=== PATIENT | female | born 1975 | race Caucasian/White ===

== ENCOUNTER 2022-06-07 08:31 | Emergency (ER) | payer MEDICAID, OTHER ==
[~2022-06-07] VITALS: Ht 162.5 cm; Wt 77.1 kg
[2022-06-07 08:51] LABS: BILIRUBIN,URINE NEGATIVE (NEGATIVE); CLARITY,URINE CLOUDY; COLOR,URINE YELLOW; GLUCOSE, URINE (UA) NEGATIVE (NEGATIVE); KETONES,URINE NEGATIVE (NEGATIVE); LEUKOCYTE ESTERASE ,URINE 2+ (NEGATIVE); NITRITE,URINE POSITIVE (NEGATIVE); PROTEIN,URINE 2+ (NEGATIVE)
[2022-06-07 09:07] LABS: AMORPHOUS SEDIMENT,UR FEW AMOR URATES /LPF; BACTERIA,URINE MODERATE /HPF; RBC,URINE 25-50 /HPF; WBC,URINE TNTC /HPF
[2022-06-07] MEDS ORDERED: PHENAZOPYRIDINE 100 MG (PYRIDIUM) TABLET PO ONE (10:00)
[2022-06-07] MEDS ORDERED: HYOSCYAMINE 0.125 MG (LEVSIN) TAB PO ONE (10:00)
[2022-06-07] MEDS ORDERED: CEPH500T PO (10:41)
[2022-06-07] MEDS ORDERED: PHEN-640 PO (10:41)
[2022-06-07] MEDS ORDERED: HYOS0.1283 SL (10:41)
--- NOTE | 2022-06-07 10:41 | ED GU-Female ---
General Chief Complaint: - Reproductive Stated Complaint: UNABLE TO URINATE Nursing Triage Note: PT AMB TO RM 8 WITH COMPLAINT OF URINARY URGENCY AND FREQUENCY. STATES STARTED 3 DAYS AGO. Source: patient Exam Limitations: no limitations History of Present Illness Date Seen by Provider: Jun 07, 2022 Time Seen by Provider: 08:33 Initial Comments This 46-year-old woman presents to the emergency room with complaints of very painful urination and pelvic discomfort with frequency and small voids. Symptoms have been present for 3 days. She does not feel like she is emptying her bladder completely. She denies fever. She has not noticed any gross hematuria. Pain is central in the suprapubic region. Seth Jones in [place] is her primary care provider. Allergies and Home Medications Allergies Coded Allergies: No Known Drug Allergies (Unverified , 06/07/22) Patient Home Medication List Home Medication List Reviewed: Yes Cephalexin (Cephalexin) 500 Mg Tablet, 500 MG PO TID Prescribed by: MICHELLE JOE on 06/07/22 1041 Hyoscyamine Sulfate (Levsin-Sl) 0.125 Mg Tab.subl, 0.125 MG SL Q4H PRN for SPASMS Prescribed by: MICHELLE JOE on 06/07/22 1041 Phenazopyridine HCl (Pyridium) 200 Mg Tablet, 1 TAB PO TID PRN for PAIN-MODERATE (5-7) Prescribed by: MICHELLE JOE on 06/07/22 1041 Review of Systems Review of Systems Constitutional: no symptoms reported EENTM: no symptoms reported Respiratory: no symptoms reported Cardiovascular: no symptoms reported Gastrointestinal: no symptoms reported Genitourinary: see HPI : No Musculoskeletal: no symptoms reported Skin: no symptoms reported Psychiatric/Neurological: No Symptoms Reported Endocrine: No Symptoms Reported Hematologic/Lymphatic: No Symptoms Reported Past Vmcehsu-Nxbihi-Rzedtq Hx Patient Social History Tobacco Use?: Yes Tobacco type used: Cigarettes Smoking Status: Current Everyday Smoker Use of E-Cig and/or Vaping dev: No Substance use?: Yes Substance type: Methamphetamine Alcohol Use?: Yes Alcohol Frequency: Daily Pt feels they are or have been: No Past Medical History Surgeries: Yes Section (X3), Orthopedic (Back) Respiratory: No Cardiac: No Neurological: No : No Reproductive Disorders: No Genitourinary: No Gastrointestinal: No Musculoskeletal: No Endocrine: No HEENT: No Cancer: No Psychosocial: Yes Anxiety, Depression Physical Exam Vital Signs Vital Signs - First Documented 06/07/22 08:37 Temp 36.8 Pulse 87 Resp 16 B/P (MAP) 157/99 (118) Pulse Ox 99 O2 Delivery Room Air Capillary Refill : Less Than 3 Seconds Height, Weight, BMI Height: '" Weight: lbs. oz. kg; 29.00 BMI Method: General Appearance: WD/WN, no apparent distress, thin HEENT: PERRL/EOMI, normal ENT inspection Neck: normal inspection Cardiovascular: regular rate, rhythm, no murmur Respiratory: lungs clear, normal breath sounds, no respiratory distress Gastrointestinal: normal bowel sounds, soft; No distended; tenderness (Suprapubic) Back: no CVA tenderness Extremities: non-tender, no pedal edema Neurologic/Psychiatric: no motor/sensory deficits, alert, normal mood/affect, oriented x 3 Skin: normal color, warm/dry Progress/Results/Core Measures Suspected Sepsis SIRS Temperature: Pulse: 87 Respiratory Rate: 16 Blood Pressure 157 /99 Mean: 118 Results/Orders Lab Results Laboratory Tests Test 06/07/22 08:37 Range/Units Urine Color YELLOW Urine Clarity CLOUDY Urine pH 6.0 5-9 Urine Specific [place] >=1.030 1.016-1.022 Urine Protein 2+ H NEGATIVE Urine Glucose (UA) NEGATIVE NEGATIVE Urine Ketones NEGATIVE NEGATIVE Urine Nitrite POSITIVE H NEGATIVE Urine Bilirubin NEGATIVE NEGATIVE Urine Urobilinogen 0.2 < = 1.0 MG/DL Urine Leukocyte Esterase 2+ H NEGATIVE Urine RBC (Auto) 2+ H NEGATIVE Urine RBC 25-50 H /HPF Urine WBC TNTC H /HPF Urine Squamous Epithelial Cells 2-5 /HPF Urine Crystals PRESENT H /LPF Urine Amorphous Sediment FEW YOSELIN URATES H /LPF Urine Bacteria MODERATE H /HPF Urine Casts NONE /LPF Urine Mucus SMALL H /LPF Urine Culture Indicated YES Urine Test NEGATIVE NEGATIVE My Orders Orders - MICHELLE ALCALA MD Ua Culture If Indicated (06/07/22 08:33) Urine Culture (06/07/22 08:37) Hyoscyamine Sl Tablet (Levsin Sl Tablet) (06/07/22 10:00) Phenazopyridine Tablet (Pyridium Tablet) (06/07/22 10:00) Hcg,Qualitative Urine (06/07/22 09:58) Medications Given in ED Current Medications Medications Dose Ordered Sig/Felipe Route Start Time Stop Time Status Last Admin Dose Admin Hyoscyamine Sulfate 0.25 mg ONCE ONCE PO 06/07/22 10:00 06/07/22 10:01 DC 06/07/22 10:29 0.25 MG Phenazopyridine HCl 200 mg ONCE ONCE PO 06/07/22 10:00 06/07/22 10:01 DC 06/07/22 10:29 200 MG Vital Signs/I&O 06/07/22 06/07/22 08:37 10:44 Temp 36.8 36.8 Pulse 87 87 Resp 16 16 B/P (MAP) 157/99 (118) 145/89 Pulse Ox 99 99 O2 Delivery Room Air Room Air Capillary Refill : Less Than 3 Seconds Blood Pressure Mean: 118 Progress Note : Progress Note UTI noted on urinalysis. She was treated with Levsin and Pyridium. Antibiotics prescribed. Importance of follow-up for repeat urinalysis due to the hematuria and review of urine cultures was emphasized. See discharge instructions for further discussion. Bladder scan revealed no significant residual postvoid. Departure Impression Primary Impression: Urinary tract infection Qualified Codes: N39.0 - Urinary tract infection, site not specified; R31.9 - Hematuria, unspecified Additional Impression: Painful bladder spasm Disposition: 01 HOME, SELF-CARE Condition: Improved Departure-Patient Inst. Decision time for Depature: 10:37 Referrals: NO,LOCAL PHYSICIAN (PCP/Family) Primary Care Physician Patient Instructions: Urinary Tract Infection, Adult (DC) Add. Discharge Instructions: You have a urinary tract infection but no evidence of urinary retention. It appears you are emptying your bladder. Your pain is likely due in part to bladder spasms. Drink lots of clear liquids to stay well-hydrated and help flush out the urinary tract. You may use Levsin (hyoscyamine) as prescribed for bladder spasming. This medication is dissolved under the tongue. You may use Pyridium for bladder numbing. This medication may turn your urine a red or orange color. Please do not be alarmed by this. Complete your antibiotic as prescribed. Follow-up with your primary care provider on or Monday to review urine culture results. This is important to ensure you are taking the best antibiotic for the type of bladder infection you have. You also need to follow-up with your primary care provider in 2 or 3 weeks to have your urine checked again. There was a small amount of blood in your urine which is likely due to infection. However, we need to make sure the blood clears as there may be other causes of blood such as kidney stones, cancer, cystitis, etc. Return to the ER if you have worsening symptoms or develop new symptoms such as fever. All discharge instructions reviewed with patient and/or family. Voiced understanding. Scripts Hyoscyamine Sulfate (Levsin-Sl) 0.125 Mg Tab.subl 0.125 MG SL Q4H PRN for SPASMS, #10 TAB 0 Refills Prov: MICHELLE ALCALA MD 06/07/22 Phenazopyridine HCl (Pyridium) 200 Mg Tablet 1 TAB PO TID PRN for PAIN-MODERATE (5-7), #10 TAB Prov: MICHELLE ALCALA MD 06/07/22 Cephalexin (Cephalexin) 500 Mg Tablet 500 MG PO TID, #21 TAB Prov: MICHELLE ALCALA MD 06/07/22 MICHELLE ALCALA MD Jun 07, 2022 10:41
[2022-06-07 10:44] VITALS: BP 145/89
== END 2022-06-07 10:44 | disposition home or self-care (01) ==
LOC: EDUNIT# 08:31 → ER 08:32
DX: N39.0 Urinary tract infection, site not specified (principal); N32.89 Other specified disorders of bladder; F17.210 Nicotine dependence, cigarettes, uncomplicated; Z28.310 Unvaccinated for COVID-19
CPT/HCPCS: 81000; 84703; 87077; 87088; 99283

== ENCOUNTER 2022-10-04 07:37 | Emergency (ER) | payer MEDICAID ==
[~2022-10-04] VITALS: Ht 162.5 cm; Wt 72.6 kg
[~2022-10-04 07:37] MED LIST: CEPH500T PO; HYOS0.1283 SL; PHEN-640 PO
--- NOTE | 2022-10-04 08:19 | ED GU-Female ---
General Chief Complaint: Abdominal/GI Problems Stated Complaint: PELVIC PAIN Nursing Triage Note: PT AMB TO RM 10 WITH COMPLAINT OF INTERMITTENT PELVIC PAIN THAT HAS BEEN ON GOING FOR YEARS. STATES THIS MORNING IT HAS WORSENED. LMP 2 WEEKS AGO. Source: patient, family (Significant other) Exam Limitations: no limitations History of Present Illness Date Seen by Provider: Oct 04, 2022 Time Seen by Provider: 07:52 Initial Comments Here with report of low abdominal pain that has been intermittent over the last several years and worse with sexual activity. States that the pain was worse this morning and notes watery discharge. Significant other reports that she has had watery discharge and vaginal odor. He reports that she has been complaining of lower abdominal pain and agrees that she has been using ibuprofen and or naproxen as needed for pain. Patient admits to history of methamphetamine use but states that she is not using currently has been several days. She denies nausea, vomiting, fever, chills or weakness. She does report history of fibroids. Timing/Duration: intermittent, other (A few years but worse over the last few days including this morning) Severity/Quality: moderate, aching Location: suprapubic Radiation: back Activities at Onset: none Sexual [place] History: less than 2 months ago, single partner Modifying Factors: Improves With Other (Sexual activity) Associated Symptoms: abdominal pain, dysuria; No fever/chills; lower back pain, urinary frequency Allergies and Home Medications Allergies Coded Allergies: No Known Drug Allergies (Unverified , 06/07/22) Patient Home Medication List Home Medication List Reviewed: Yes Cephalexin (Cephalexin) 500 Mg Tablet, 500 MG PO TID Prescribed by: MICHELLE JOE on 06/07/22 1041 Hyoscyamine Sulfate (Levsin-Sl) 0.125 Mg Tab.subl, 0.125 MG SL Q4H PRN for SPASMS Prescribed by: MICHELLE JOE on 06/07/22 1041 Phenazopyridine HCl (Pyridium) 200 Mg Tablet, 1 TAB PO TID PRN for PAIN-MODERATE (5-7) Prescribed by: MICHELLE JOE on 06/07/22 1041 Review of Systems Review of Systems Constitutional: see HPI; No chills, No fever Respiratory: No cough, No short of breath Gastrointestinal: see HPI Genitourinary: see HPI LMP: Sep 20, 2022 Musculoskeletal: back pain; No muscle pain Psychiatric/Neurological: Denies Headache, Denies Weakness Past Hfsilsg-Rsrgdp-Xjpdmy Hx Patient Social History Tobacco Use?: Yes Tobacco type used: Cigarettes Smoking Status: Current Everyday Smoker Use of E-Cig and/or Vaping dev: No Substance use?: No Substance type: Methamphetamine Substance frequency: Once in a while Alcohol Use?: Yes Alcohol Frequency: Couple times a week Pt feels they are or have been: No Past Medical History Surgeries: Yes Section, Orthopedic Respiratory: No Cardiac: No Neurological: No Reproductive Disorders: No Genitourinary: No Gastrointestinal: No Musculoskeletal: No Endocrine: No HEENT: No Cancer: No Psychosocial: Yes Anxiety, Depression Family Medical History Reviewed Nursing Family Hx No Pertinent Family Hx Physical Exam Vital Signs Vital Signs - First Documented 10/04/22 07:42 Pulse 103 Resp 20 B/P (MAP) 139/86 (103) Pulse Ox 100 O2 Delivery Room Air Capillary Refill : Less Than 3 Seconds Height, Weight, BMI Height: '" Weight: lbs. oz. kg; 27.00 BMI Method: General Appearance: WD/WN, no apparent distress Cardiovascular: regular rate, rhythm, no murmur Respiratory: lungs clear, normal breath sounds Gastrointestinal: soft, tenderness (Suprapubic and lateral bilateral with m oderate tenderness although no palpable mass) Back: normal inspection, no CVA tenderness, no vertebral tenderness Extremities: non-tender, normal inspection Neurologic/Psychiatric: alert, oriented x 3 Skin: normal color, warm/dry Progress/Results/Core Measures Suspected Sepsis SIRS Temperature: Pulse: 103 Respiratory Rate: 20 Laboratory Tests 10/04/22 09:48: White Blood Count 10.1 Blood Pressure 139 /86 Mean: 103 Laboratory Tests 10/04/22 09:48: Creatinine 0.82, Platelet Count 593H, Total Bilirubin 0.2 Results/Orders Lab Results Laboratory Tests Test 10/04/22 08:40 10/04/22 09:48 Range/Units Urine Color YELLOW Urine Clarity CLEAR Urine pH 6.0 5-9 Urine Specific [place] >=1.030 1.016-1.022 Urine Protein NEGATIVE NEGATIVE Urine Glucose (UA) NEGATIVE NEGATIVE Urine Ketones NEGATIVE NEGATIVE Urine Nitrite NEGATIVE NEGATIVE Urine Bilirubin NEGATIVE NEGATIVE Urine Urobilinogen 0.2 < = 1.0 MG/DL Urine Leukocyte Esterase 1+ H NEGATIVE Urine RBC (Auto) 3+ H NEGATIVE Urine RBC 2-5 H /HPF Urine WBC 2-5 /HPF Urine Squamous Epithelial Cells 2-5 /HPF Urine Crystals PRESENT H /LPF Urine Amorphous Sediment MOD YOSELIN URATES H /LPF Urine Bacteria FEW H /HPF Urine Casts NONE /LPF Urine Mucus NEGATIVE /LPF Urine Culture Indicated NO White Blood Count 10.1 4.3-11.0 10^3/uL Red Blood Count 3.90 3.80-5.11 10^6/uL Hemoglobin 8.9 L 11.5-16.0 g/dL Hematocrit 30 L 35-52 % Mean Corpuscular Volume 78 L 80-99 fL Mean Corpuscular Hemoglobin 23 L 25-34 pg Mean Corpuscular Hemoglobin Concent 29 L 32-36 g/dL Red Cell Distribution Width 15.9 H 10.0-14.5 % Platelet Count 593 H 130-400 10^3/uL Mean Platelet Volume 10.0 9.0-12.2 fL Immature Granulocyte % (Auto) 0 % Neutrophils (%) (Auto) 64 42-75 % Lymphocytes (%) (Auto) 23 12-44 % Monocytes (%) (Auto) 10 0-12 % Eosinophils (%) (Auto) 2 0-10 % Basophils (%) (Auto) 1 0-10 % Neutrophils # (Auto) 6.4 1.8-7.8 10^3/uL Lymphocytes # (Auto) 2.3 1.0-4.0 10^3/uL Monocytes # (Auto) 1.0 0.0-1.0 10^3/uL Eosinophils # (Auto) 0.2 0.0-0.3 10^3/uL Basophils # (Auto) 0.1 0.0-0.1 10^3/uL Immature Granulocyte # (Auto) 0.0 0.0-0.1 10^3/uL Sodium Level 131 L 135-145 MMOL/L Potassium Level 4.1 3.6-5.0 MMOL/L Chloride Level 101 98-107 MMOL/L Carbon Dioxide Level 22 21-32 MMOL/L Anion Gap 8 5-14 MMOL/L Blood Urea Nitrogen 14 7-18 MG/DL Creatinine 0.82 0.60-1.30 MG/DL Estimat Glomerular Filtration Rate 90 BUN/Creatinine Ratio 17 Glucose Level 95 70-105 MG/DL Calcium Level 9.1 8.5-10.1 MG/DL Corrected Calcium 9.3 8.5-10.1 MG/DL Total Bilirubin 0.2 0.1-1.0 MG/DL Aspartate Amino Transf (AST/SGOT) 31 5-34 U/L Alanine Aminotransferase (ALT/SGPT) 27 0-55 U/L Alkaline Phosphatase 76 40-136 U/L C-Reactive Protein High Sensitivity 0.64 H 0.00-0.50 MG/DL Total Protein 7.3 6.4-8.2 GM/DL Albumin 3.7 3.2-4.5 GM/DL Micro Results Microbiology 10/04/22 Wet Prep - Final, Complete My Orders Orders - JAE LAGOS MD Ua Culture If Indicated (10/04/22 08:04) Urine Bedside (10/04/22 08:04) Wet Prep (10/04/22 08:04) Us Non Ob Pelvis Comp/Transvag (10/04/22 08:04) Ed Iv/Invasive Line Start (10/04/22 09:15) Cbc With Automated Diff (10/04/22 09:15) Comprehensive Metabolic Panel (10/04/22 09:15) Hs C Reactive Protein (10/04/22 09:15) Ct Abdomen/Pelvis W (10/04/22 09:15) Ns Iv 1000 Ml (Sodium Chloride 0.9%) (10/04/22 09:15) Iohexol Injection (Omnipaque 350 Mg/Ml 1 (10/04/22 09:30) Received Contrast (Hold Metformin- Contr (10/04/22 09:30) Ns (Ivpb) (Sodium Chloride 0.9% Ivpb Bag (10/04/22 09:30) Di Iv Start (Assessment) .IV start (10/04/22 09:38) Medications Given in ED Current Medications Medications Dose Ordered Sig/Felipe Route Start Time Stop Time Status Last Admin Dose Admin Iohexol 80 ml ONCE ONCE IV 10/04/22 09:30 10/04/22 09:35 DC 10/04/22 09:41 80 ML Sodium Chloride 100 ml ONCE ONCE IV 10/04/22 09:30 10/04/22 09:35 DC 10/04/22 09:41 80 ML Sodium Chloride 1,000 ml @ 0 mls/hr Q0M ONCE IV 1/24/23 09:15 10/04/22 09:18 DC 10/04/22 09:50 0 MLS/HR Vital Signs/I&O 10/04/22 07:42 Pulse 103 Resp 20 B/P (MAP) 139/86 (103) Pulse Ox 100 O2 Delivery Room Air Capillary Refill : Less Than 3 Seconds Blood Pressure Mean: 103 Progress Note : Progress Note Seen and evaluated. I did discuss several options for therapy. Ultimately she did not want to do IV and she declined pain medicine but is okay with UA, UCG and wet prep. She also agreed to pelvic ultrasound due to history of fibroids. I did discuss that this is a limited evaluation given her constraints and she was okay with that. She does have appointment with her doctor on 14 October for annual exam. We also did discuss methamphetamine use and avoidance and community programs that can help which she uses appreciative of the conversation. Differential includes UTI, bacterial vaginosis, uterine fibroids, other pelvic pathology. 0915: Patient does have concerning findings on ultrasound of large uterine fibroids but also the cervix is obscured. I did discuss all of this with the machine maintenance technician. She was very concerned about the lower uterine segment because she cannot see it. I did discuss this with the patient. Given that we have partially obscured findings, CT abdomen and pelvis is appropriate. This was discussed with the patient. We will also check basic labs. She does have findings of bacterial vaginosis by wet prep. UA is nonconcerning for UTI but does have a little blood. We will see what CT scan shows. Monitor patient. 1040: Hemoglobin 8.9 with normal white count and otherwise normal CBC. CMP nonconcerning overall although sodium is slightly low. CRP is negative. I did review CT results as noted below. Patient does have follow-up with her primary care doctor and I will encourage her to find follow-up with record systems analyst as she may need further evaluation regarding that. She can get referral through her doctor as well. We will initiate treatment for bacterial vaginosis. 1057: I did have more in-depth conversation with the patient. She actually has appointment with record systems analyst on October 14 and another primary care provider on October 13. She will bring copy of her records to the other record systems analyst to look at. I did discuss the importance of follow-up due to concerns about these fibroid growths. Discharged home with return precautions. Patient and significant other verbalized understanding instructions and agreement with plan. Patient will start metronidazole therapy from pharmacy across the street. I did also discuss anemia concerns. Patient admits to heavy menstrual periods. She will discuss this with her record systems analyst as well. Diagnostic Imaging Diagonstic Imaging: Ultrasound Plain Films/CT/US/NM/MRI: pelvis Comments [facility] [place], [place] NAME: [facility] REC#: [id number] PT STATUS: REG ER : 1975 PHYSICIAN: JAE LAGOS MD ADMIT DATE: 10/04/22/ER Draft Date of Exam:10/04/22 US NON OB PELVIS COMP/TRANSVAG PROCEDURE: US Non-ob pelvis comp/trans. INDICATION: Pelvic pain, history of fibroids. TECHNIQUE: Multiple Real-time grayscale sonographic images were obtained of the pelvis transabdominally and endovaginally. CORRELATION STUDY: None. FINDINGS: UTERUS: 10.9 x 9.3 x 9.2 cm. Uterus is enlarged and lobulated. Suggested heterogeneous masses, largest at approximately 7.2 x 6.1 x 5.3 cm, suspect for fibroids. The cervix is not able to be well delineated on this examination, obscured by shadowing. ENDOMETRIUM: Difficult to visualize. Endometrial thickness is approximately 0.8 cm, within normal limits for a premenopausal patient. RIGHT OVARY: 3.6 x 1.6 x 4.6 cm. LEFT OVARY: Not able to be visualized. Right ovary is grossly unremarkable but limited in assessment. Blood flow is demonstrated to the right ovary. No significant free pelvic fluid. IMPRESSION: 1. Significantly compromised and limited pelvic ultrasound examination. 2. Probable enlarged fibroid uterus. 3. Endometrium is largely obscured by shadowing. Additionally, the cervix cannot be well delineated. Possibility of a lower uterine and/or cervical based mass is not excluded and somewhat questioned. Dictated on workstation # [id number] Dict: 10/04/22 1001 Trans: 10/04/22 1019 [id number] Interpreted by: JARON HOOD DO Electronically signed by: Diagonstic Imaging: CT Plain Films/CT/US/NM/MRI: abdomen, pelvis Comments [facility] [place] [place] NAME: [facility] REC#: [id number] PT STATUS: REG ER : 1975 PHYSICIAN: JAE LAGOS MD ADMIT DATE: 10/04/22/ER Draft Date of Exam:10/04/22 CT ABDOMEN/PELVIS W PROCEDURE: CT abdomen and pelvis with contrast. TECHNIQUE: Multiple contiguous axial images were obtained through the abdomen and pelvis after administration of intravenous contrast. Auto Exposure Controls were utilized during the CT exam to meet ALARA standards for radiation dose reduction. All CT scans use one or more of the following dose optimizing techniques: automated exposure control, MA and/or KvP adjustment based on patient size and exam type or iterative reconstruction. INDICATION: Low abdominal pain. Correlation is made with prior sonogram performed earlier the same day. FINDINGS: Lung bases demonstrate minimal dependent atelectasis and are otherwise clear. There are no findings of pneumonia or edema. There is no pleural or pericardial effusion. The liver demonstrates some minimal focal fatty infiltration along the falciform ligament. Liver is otherwise normal. Portal veins and hepatic veins are patent. The gallbladder is nondistended. There are no radiodense gallstones or findings of biliary dilatation. Pancreas appears normal. The spleen is normal in size. There is no adrenal mass. Kidneys enhance normally and appear nonobstructed. The stomach is nondistended. There is no abnormal small or large bowel dilation. There is moderate stool within the right colon. The appendix is well-visualized and is normal. There is abnormal enlargement demonstrated of the uterus. This measures up to approximately 9.8 x 7.8 x 8.3 cm. There is slight fluid along the inferior margins of what appears to likely be a large intrauterine mass most compatible with a fibroid. Some blood products within the endometrial canal are not excluded. Process also extends into the lower uterine segment that obscures the cervix. Intraluminal blood within the cervix is considered as there does appear to be some complex blood or debris within the vagina. The ovaries appear unremarkable by CT. There is no pelvic free fluid or pelvic hemoperitoneum. The bladder is nondistended. No pathologically enlarged abdominal or pelvic lymph nodes. Aorta is normal in caliber. There is no acute osseous abnormality. There are advanced degenerative endplate changes and facet arthropathy at the L4-L5 and L5-S1 levels. IMPRESSION: 1. Large apparent intrauterine mass most suggestive of a fibroid. There also does, however appear to be some surrounding low density fluid and there is enlargement and obscuration of the lower uterine segment and the cervix is well as what appears to be some complex debris or blood products within the vagina. 2. By CT imaging, the ovaries themselves are unremarkable. 3. No pelvic free fluid or hemoperitoneum. 4. No findings of bowel obstruction. Dictated on workstation # [id number] Dict: 10/04/22 0951 Trans: 10/04/22 1003 [id number] Interpreted by: LIDYA TORRES MD Electronically signed by: Departure Impression Primary Impression: Uterine fibroid Qualified Codes: D25.9 - Leiomyoma of uterus, unspecified Additional Impressions: Anemia Qualified Codes: D64.9 - Anemia, unspecified Pelvic pain Bacterial vaginosis Disposition: HOME, SELF-CARE Condition: Stable Departure-Patient Inst. Decision time for Depature: 10:59 Referrals: ARIS VARGAS (PCP/Family) Primary Care Physician Patient Instructions: Bacterial Vaginosis ED, Uterine Fibroids (DC), Pelvic Pain ED Add. Discharge Instructions: All discharge instructions reviewed with patient and/or family. Voiced understanding. It is very important that you keep appointment with the record systems analyst as felipe eduled especially with findings of large uterine fibroids. Patient. Get copy of your records and give this to your record systems analyst. Your hemoglobin was 8.9, which is low. You should consider multivitamin with iron such as any of the vitamins that you may get [id number]. Discussed this with your record systems analyst as well. You do have findings of bacterial vaginosis. Therapy was initiated. Continue until complete. You may take Tylenol/acetaminophen 1000 mg every 6-8 hours as needed for fever or pain. You may take ibuprofen 600 mg every 8 hours as needed for fever or pain if you are not taking naproxen. Do not take both at the same time as they both are same class. Return for worse pain, fever, vomiting, weakness, breathing problems or other concerns as needed. Scripts Metronidazole (Metronidazole) 500 Mg Tablet 500 MG PO BID, #14 TAB 0 Refills Prov: JAE LAGOS MD 10/04/22 JAE LAGOS MD Oct 04, 2022 08:19
[2022-10-04 08:48] LABS: BILIRUBIN,URINE NEGATIVE (NEGATIVE); CLARITY,URINE CLEAR; COLOR,URINE YELLOW; GLUCOSE, URINE (UA) NEGATIVE (NEGATIVE); KETONES,URINE NEGATIVE (NEGATIVE); LEUKOCYTE ESTERASE ,URINE 1+ (NEGATIVE); NITRITE,URINE NEGATIVE (NEGATIVE); PROTEIN,URINE NEGATIVE (NEGATIVE)
[2022-10-04 08:57] LABS: AMORPHOUS SEDIMENT,UR MOD AMOR URATES /LPF; BACTERIA,URINE FEW /HPF
[2022-10-04] MEDS ORDERED: NS IV 1000 ML 1,000 ML IV ONE (09:15)
[2022-10-04] MEDS ORDERED: IOHEXOL 350 MG/ML 100 ML (OMNIPAQUE 350) VIAL IV ONE (09:30)
[2022-10-04] MEDS ORDERED: HOLD METFORMIN - RECEIVED CONTRAST 20 ML VIAL IV SCH (09:30)
[2022-10-04] MEDS ORDERED: NS 100 ML (IVPB) BAG IV ONE (09:30)
[2022-10-04 09:56] LABS: BASOPHILS # (AUTO) 0.1 10^3/uL (0.0-0.1); BASOPHILS % (AUTO) 1 % (0-10); EOSINOPHILS # (AUTO) 0.2 10^3/uL (0.0-0.3); EOSINOPHILS % (AUTO) 2 % (0-10); HEMATOCRIT 30 % (35-52); HEMOGLOBIN 8.9 g/dL (11.5-16.0); LYMPHOCYTES # (AUTO) 2.3 10^3/uL (1.0-4.0); LYMPHOCYTES % (AUTO) 23 % (12-44); MEAN CORPUSCULAR HEMOGLOBIN 23 pg (25-34); MEAN CORPUSCULAR HGB CONC 29 g/dL (32-36); MEAN CORPUSCULAR VOLUME 78 fL (80-99); MONOCYTES % (AUTO) 10 % (0-12); NEUTROPHILS # (AUTO) 6.4 10^3/uL (1.8-7.8); NEUTROPHILS % (AUTO) 64 % (42-75); PLATELET COUNT 593 10^3/uL (130-400); WHITE BLOOD COUNT 10.1 10^3/uL (4.3-11.0)
--- NOTE | 2022-10-04 10:03 | Diagnostic Imaging Report ---
PROCEDURE: CT abdomen and pelvis with contrast. TECHNIQUE: Multiple contiguous axial images were obtained through the abdomen and pelvis after administration of intravenous contrast. Auto Exposure Controls were utilized during the CT exam to meet ALARA standards for radiation dose reduction. All CT scans use one or more of the following dose optimizing techniques: automated exposure control, MA and/or KvP adjustment based on patient size and exam type or iterative reconstruction. INDICATION: Low abdominal pain. Correlation is made with prior sonogram performed earlier the same day. FINDINGS: Lung bases demonstrate minimal dependent atelectasis and are otherwise clear. There are no findings of pneumonia or edema. There is no pleural or pericardial effusion. The liver demonstrates some minimal focal fatty infiltration along the falciform ligament. Liver is otherwise normal. Portal veins and hepatic veins are patent. The gallbladder is nondistended. There are no radiodense gallstones or findings of biliary dilatation. Pancreas appears normal. The spleen is normal in size. There is no adrenal mass. Kidneys enhance normally and appear nonobstructed. The stomach is nondistended. There is no abnormal small or large bowel dilation. There is moderate stool within the right colon. The appendix is well-visualized and is normal. There is abnormal enlargement demonstrated of the uterus. This measures up to approximately 9.8 x 7.8 x 8.3 cm. There is slight fluid along the inferior margins of what appears to likely be a large intrauterine mass most compatible with a fibroid. Some blood products within the endometrial canal are not excluded. Process also extends into the lower uterine segment that obscures the cervix. Intraluminal blood within the cervix is considered as there does appear to be some complex blood or debris within the vagina. The ovaries appear unremarkable by CT. There is no pelvic free fluid or pelvic hemoperitoneum. The bladder is nondistended. No pathologically enlarged abdominal or pelvic lymph nodes. Aorta is normal in caliber. There is no acute osseous abnormality. There are advanced degenerative endplate changes and facet arthropathy at the L4-L5 and L5-S1 levels. IMPRESSION: 1. Large apparent intrauterine mass most suggestive of a fibroid. There also does, however appear to be some surrounding low density fluid and there is enlargement and obscuration of the lower uterine segment and the cervix is well as what appears to be some complex debris or blood products within the vagina. 2. By CT imaging, the ovaries themselves are unremarkable. 3. No pelvic free fluid or hemoperitoneum. 4. No findings of bowel obstruction. Dictated by: Dictated on workstation # [id number]
[2022-10-04 10:08] LABS: ALBUMIN 3.7 GM/DL (3.2-4.5); POTASSIUM 4.1 MMOL/L (3.6-5.0)
[2022-10-04 10:09] LABS: CALCIUM 9.1 MG/DL (8.5-10.1)
[2022-10-04 10:11] LABS: TOTAL PROTEIN 7.3 GM/DL (6.4-8.2)
[2022-10-04 10:12] LABS: BILIRUBIN,TOTAL 0.2 MG/DL (0.1-1.0)
[2022-10-04 10:14] LABS: CREATININE SERUM 0.82 MG/DL (0.60-1.30)
--- NOTE | 2022-10-04 10:19 | Diagnostic Imaging Report ---
PROCEDURE: US Non-ob pelvis comp/trans. INDICATION: Pelvic pain, history of fibroids. TECHNIQUE: Multiple Real-time grayscale sonographic images were obtained of the pelvis transabdominally and endovaginally. CORRELATION STUDY: None. FINDINGS: UTERUS: 10.9 x 9.3 x 9.2 cm. Uterus is enlarged and lobulated. Suggested heterogeneous masses, largest at approximately 7.2 x 6.1 x 5.3 cm, suspect for fibroids. The cervix is not able to be well delineated on this examination, obscured by shadowing. ENDOMETRIUM: Difficult to visualize. Endometrial thickness is approximately 0.8 cm, within normal limits for a premenopausal patient. RIGHT OVARY: 3.6 x 1.6 x 4.6 cm. LEFT OVARY: Not able to be visualized. Right ovary is grossly unremarkable but limited in assessment. Blood flow is demonstrated to the right ovary. No significant free pelvic fluid. IMPRESSION: 1. Significantly compromised and limited pelvic ultrasound examination. 2. Probable enlarged fibroid uterus. 3. Endometrium is largely obscured by shadowing. Additionally, the cervix cannot be well delineated. Possibility of a lower uterine and/or cervical based mass is not excluded and somewhat questioned. Dictated by: Dictated on workstation # [id number]
[2022-10-04] MEDS ORDERED: METR-145 PO (11:03)
[2022-10-04 11:15] VITALS: BP 139/86
== END 2022-10-04 11:15 | disposition home or self-care (01) ==
LOC: EDUNIT# 07:37 → ER 07:40
DX: D25.9 Leiomyoma of uterus, unspecified (principal); D64.9 Anemia, unspecified; N76.0 Acute vaginitis; F17.210 Nicotine dependence, cigarettes, uncomplicated
CPT/HCPCS: 36415; 74177; 76830; 76856; 80053; 81000; 84703; 85025; 86141; 87210

== ENCOUNTER 2022-12-19 02:18 | Emergency (ER) | payer MEDICAID ==
[~2022-12-19] VITALS: Ht 162.6 cm; Wt 81.2 kg
[~2022-12-19 02:18] MED LIST changes: +METR-145 PO
[2022-12-19 02:19] VITALS: BP 148/96
[2022-12-19] MEDS ORDERED: oxyCODONE/APAP 7.5-325 MG (PERCOCET 7.5) TABLET PO ONE (03:00)
[2022-12-19] MEDS ORDERED: RX-OXYCODONE/APAP 5-325 MG #4 TAB PK PO PRN (03:00)
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
[2022-12-19] MEDS ORDERED: oxyCODONE/APAP 5/325MG (PERCOCET 5) TABLET PO ONE (04:00)
== END 2022-12-19 04:52 | disposition home or self-care (01) ==
LOC: EDUNIT# 02:18 → ER 02:19
DX: M79.642 Pain in left hand (principal); Z28.310 Unvaccinated for COVID-19; V89.2XXA Person injured in unspecified motor-vehicle accident, traffic, initial encounter; Y92.410 Unspecified street and highway as the place of occurrence of the external cause
CPT/HCPCS: 99283

== ENCOUNTER 2022-12-19 17:02 | Emergency (ER) | payer MEDICAID ==
[~2022-12-19] VITALS: Ht 162 cm; Wt 79.0 kg
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
[2022-12-19 19:01] VITALS: BP 127/84
== END 2022-12-19 19:04 | disposition home or self-care (01) ==
LOC: EDUNIT# 17:02 → ER 17:08
DX: M79.642 Pain in left hand (principal); M79.89 Other specified soft tissue disorders; M79.81 Nontraumatic hematoma of soft tissue; F17.210 Nicotine dependence, cigarettes, uncomplicated; Z91.199 Patient's noncompliance with other medical treatment and regimen due to unspecified reason; Z28.310 Unvaccinated for COVID-19
CPT/HCPCS: 29125